=== PATIENT | female | born 1990 | race Caucasian/White ===

== ENCOUNTER 2020-10-27 16:10 | Emergency (ER) | payer OTHER ==
[2020-10-27] MEDS ORDERED: CEPHALEXIN500 M1 PO (20:11)
[2020-10-27] MEDS ORDERED: BACTRIM DS TAB1 EACH PO (20:11)
== END 2020-10-27 20:40 | disposition home or self-care (01) ==
LOC: ER1 16:10
DX: L02.01 Cutaneous abscess of face (principal)
CPT/HCPCS: 10060; 96372; 99282; J1885

== ENCOUNTER 2021-03-02 11:29 | Emergency (ER) | payer OTHER ==
[~2021-03-02 11:29] MED LIST: BACTRIM DS TAB1 EACH PO; CEPHALEXIN500 M1 PO
[2021-03-02 13:26] LABS: HEMOGLOBIN 12.8 gm/dl (12.3-15.3); RED BLOOD COUNT 4.03 M/UL (4.00-5.10); WHITE BLOOD COUNT 9.8 K/UL (4.5-11.0)
[2021-03-02 13:55] LABS: BUN/CREATININE RATIO 19 (0-10)
== END 2021-03-02 15:15 | disposition home or self-care (01) ==
LOC: ER1 11:29
PROVIDERS: Family Medicine
DX: O99.891 Other specified diseases and conditions complicating pregnancy (principal); R10.2 Pelvic and perineal pain; Z3A.10 10 weeks gestation of pregnancy
CPT/HCPCS: 80053; 81001; 82150; 83690; 84702; 85025; 99284

== ENCOUNTER 2021-05-19 13:02 | Emergency (ER) | payer OTHER ==
[~2021-05-19] VITALS: Ht 157.5 cm; Wt 67.1 kg
== END 2021-05-19 15:50 | disposition home or self-care (01) ==
LOC: ER1 13:02
DX: O98.512 Other viral diseases complicating pregnancy, second trimester (principal); U07.1 COVID-19; Z23 Encounter for immunization; Z3A.20 20 weeks gestation of pregnancy
CPT/HCPCS: 87081; 87880; 99283; M0243

== ENCOUNTER → 2021-06-04 | Outpatient (CLI) | payer OTHER | LOC: HEART 5 15:00 | DX: R06.02 Shortness of breath (principal); I07.1 Rheumatic tricuspid insufficiency | CPT/HCPCS: 93306 ==

== ENCOUNTER 2021-09-12 16:05 | Emergency (ER) | payer OTHER ==
[2021-09-12] MEDS ORDERED: AMOXICILLIN875 MG PO (17:49)
== END 2021-09-12 17:16 | disposition home or self-care (01) ==
LOC: ER1 16:05
DX: O99.513 Diseases of the respiratory system complicating pregnancy, third trimester (principal); J02.8 Acute pharyngitis due to other specified organisms; Z20.822 Contact with and (suspected) exposure to COVID-19; Z3A.37 37 weeks gestation of pregnancy
CPT/HCPCS: 87081; 87880; 99283; U0002

== ENCOUNTER 2021-09-16 04:06 | Outpatient (CLI) | payer OTHER ==
[~2021-09-16 04:06] MED LIST changes: +AMOXICILLIN875 MG PO
== END 2021-09-16 07:35 | disposition home or self-care (01) ==
LOC: GENOP 04:06
DX: O47.1 False labor at or after 37 completed weeks of gestation (principal); Z3A.37 37 weeks gestation of pregnancy
CPT/HCPCS: G0463

== ENCOUNTER → 2021-09-29 | Outpatient (CLI) | payer OTHER ==
[~2021-09-29] MED LIST changes: +COLACE 100MG C100 MG PO; +HYDROCODON-ACE1 EAC4 PO; +IBUPROFEN800 MG PO; +IRON325 M1 PO; +LABETALOL HCL100 MG PO; +PRENATAL VITAM1 EAC3 PO
== END ==
LOC: GENOP 22:13
DX: O47.1 False labor at or after 37 completed weeks of gestation (principal); O98.513 Other viral diseases complicating pregnancy, third trimester; U07.1 COVID-19; O99.891 Other specified diseases and conditions complicating pregnancy; N89.8 Other specified noninflammatory disorders of vagina; Z3A.39 39 weeks gestation of pregnancy
CPT/HCPCS: 83518; U0002

== ENCOUNTER → 2021-09-30 | Outpatient (CLI) | payer OTHER | LOC: GENOP 18:03 | DX: O47.1 False labor at or after 37 completed weeks of gestation (principal); O99.013 Anemia complicating pregnancy, third trimester; D64.9 Anemia, unspecified; O99.891 Other specified diseases and conditions complicating pregnancy; M41.9 Scoliosis, unspecified; Z3A.39 39 weeks gestation of pregnancy | CPT/HCPCS: 81001; 96360; 96361 ==

== ENCOUNTER 2021-10-04 03:50 | Inpatient (IN) | payer OTHER ==
[~2021-10-04] VITALS: Ht 160 cm; Wt 74.4 kg
[~2021-10-04 03:50] MED LIST changes: -COLACE 100MG C100 MG PO; -HYDROCODON-ACE1 EAC4 PO; -IBUPROFEN800 MG PO; -IRON325 M1 PO; -LABETALOL HCL100 MG PO; -PRENATAL VITAM1 EAC3 PO
[2021-10-04] MEDS ORDERED: IRON325 M1 PO (05:12)
[2021-10-04] MEDS ORDERED: LABETALOL HCL100 MG PO (05:12)
[2021-10-04] MEDS ORDERED: PRENATAL VITAM1 EAC3 PO (05:13)
[2021-10-04 05:34] LABS: HEMOGLOBIN 13.3 gm/dl (12.3-15.3); RED BLOOD COUNT 4.05 M/UL (4.00-5.10); WHITE BLOOD COUNT 8.7 K/UL (4.5-11.0)
[2021-10-04] MEDS ORDERED: HYDROCODON-ACE1 EAC4 PO (12:34)
[2021-10-04] MEDS ORDERED: IBUPROFEN800 MG PO (12:34)
[2021-10-04] MEDS ORDERED: COLACE 100MG C100 MG PO (12:34)
[2021-10-05 05:29] LABS: HEMOGLOBIN 11.9 gm/dl (12.3-15.3)
== END 2021-10-05 15:20 | disposition home or self-care (01) | DRG 805 ==
LOC: GENOP 03:50 → OB 04:48
PROVIDERS: ADMIT Obstetrics & Gynecology
PROC: 10E0XZZ Delivery of Products of Conception, External Approach (ICD-10-PCS; principal; 2021-10-04)
PROC: 8E0ZXY6 Isolation (ICD-10-PCS; 2021-10-04)
PROC: 3E0234Z Introduction of Serum, Toxoid and Vaccine into Muscle, Percutaneous Approach (ICD-10-PCS; 2021-10-04)
DX: O48.0 Post-term pregnancy (principal); U07.1 COVID-19; Z37.0 Single live birth; O99.42 Diseases of the circulatory system complicating childbirth; O98.52 Other viral diseases complicating childbirth; O77.0 Labor and delivery complicated by meconium in amniotic fluid; O99.892 Other specified diseases and conditions complicating childbirth; G43.909 Migraine, unspecified, not intractable, without status migrainosus; O99.02 Anemia complicating childbirth; D64.9 Anemia, unspecified; R00.2 Palpitations; O66.0 Obstructed labor due to shoulder dystocia; Z3A.40 40 weeks gestation of pregnancy; Z23 Encounter for immunization
CPT/HCPCS: 82800; 85014; 85018; 85025; 90715; J2405; J2590

== ENCOUNTER → 2021-10-08 | Outpatient (CLI) | payer OTHER ==
[~2021-10-08] MED LIST changes: +COLACE 100MG C100 MG PO; +HYDROCODON-ACE1 EAC4 PO; +IBUPROFEN800 MG PO; +IRON325 M1 PO; +LABETALOL HCL100 MG PO; +PRENATAL VITAM1 EAC3 PO
== END ==
LOC: RAD 18:02
DX: R20.2 Paresthesia of skin (principal); M54.50 Low back pain, unspecified; N20.0 Calculus of kidney
CPT/HCPCS: 72100